=== PATIENT | female | born 1935 | race Caucasian/White ===

== ENCOUNTER 2018-10-27 02:49 | Inpatient (IN) | payer MEDICARE ==
[2018-10-27] MEDS ORDERED: Acetaminophen 1,000 MG in Premix Bag 1 BAG IVPB SCH (03:15)
[2018-10-27 03:59] LABS: CKMB 40.4 ng/mL (0-6.6)
[2018-10-27] MEDS ORDERED: Norepinephrine 8 MG/0.9% NS 250 ML ONE (04:53)
[2018-10-27] MEDS ORDERED: Enoxaparin Sodium 60 MG/0.6 ML SYRINGE ONE (05:53)
[2018-10-27] MEDS ORDERED: Aspirin Chewable 81 MG TAB ONE (05:53)
--- NOTE | 2018-10-27 06:36 | HP ---
PRIMARY CARE PHYSICIAN: Dr. Gupta. CHIEF COMPLAINT: "I fell down and I could not get up." HISTORY OF PRESENT ILLNESS: Ms. Barron is a very pleasant 82-year-old female who has a history of hypertension and hypothyroidism. She lives very close to her daughter, actually on small house of her daughter's property. She normally will come to dinner in the evenings and then go back to her home and usually is able to do her activities of daily living. Her daughter says that she came over for dinner as usual and then around 9:45 they noticed that the light was still on in her house. They went in to go check on her and found her on the ground. They were not sure how long she had been on the ground, but the patient herself said about an hour. Her daughter noticed that her entire back was wet and it looked as if she was trying to reach for remote and was not able to get it. They brought her to the emergency room for evaluation and she was found to be hypotensive and her troponin was elevated and it appears as if she has a urinary tract infection and she was sent over from the [place] [facility] to our emergency room for admission and further treatment. The daughter says other than having decrease in appetite recently, she is not sure if she had any other complaints. The patient herself is alert and oriented to person, place, and time now and admits that she fell and could not get up. She says "that she feels fine now." She denies any chest pain. She denies feeling short of breath. She denies any abdominal pain. No nausea. No vomiting. No headache. No sore throat. She only says that her legs are aching. REVIEW OF SYSTEMS: All systems were reviewed and are negative except for that mentioned in the history of present illness. PAST MEDICAL HISTORY: Significant for hypertension and hypothyroidism. PAST SURGICAL HISTORY: She has had neck surgery. ALLERGIES: NO KNOWN DRUG ALLERGIES. SOCIAL HISTORY: She is . She is a nonsmoker and nondrinker. CODE STATUS: Full code. FAMILY HISTORY: Significant for diabetes mellitus. CURRENT MEDICATIONS: Include; 1. Atorvastatin 10 mg daily. 2. Sertraline 25 mg daily. 3. Potassium chloride 10 mEq once a day. 4. Lisinopril/hydrochlorothiazide 20/25 one tablet daily. 5. Amlodipine 5 mg daily. PHYSICAL EXAMINATION: GENERAL: She is alert. She is oriented to person, place, and time as well as situation. She is well developed and well nourished. She does not appear in distress. VITAL SIGNS: Her blood pressure was approximately 99/50, heart rate 96, respiratory rate of 24, and temperature was 98. HEENT: Her pupils are equal, round, and reactive. Extraocular muscles are intact. Her sclerae anicteric. Throat; there is no erythema, no exudate. She is edentulous. NECK: There is no adenopathy, no bruits. LUNGS: She has some rales at the bases bilaterally. There is no wheezing or rhonchi. CARDIOVASCULAR: She had a normal S1 and S2. There is no S3 or S4. No murmurs, clicks, or rubs. ABDOMEN: Obese. It is soft. It is nontender and nondistended. Positive for bowel sounds. No rebound or guarding. EXTREMITIES: There is no edema. No calf tenderness. No joint effusions or warmth. NEUROLOGIC: The exam is grossly nonfocal. IMAGING STUDIES: On her chest x-ray, which is by my reading, she has widened mediastinum. It is unclear whether or not this is a rotated film and possibly some increased pulmonary vascular markings. CT scan of the brain was negative. X-ray of the pelvis is reported as being negative. LABORATORY DATA: White blood cell count 21.3, hemoglobin 13.2, hematocrit is 39.4, and platelet count is 293. Sodium is 135, potassium 3.9, chloride is 101, CO2 of 17, BUN of 32, creatinine 1.58, and glucose is 171. Lactic acid was 2.4. Troponin is 3.8. Urinalysis shows trace ketones, large leukocyte esterase, 3+ bacteria, and 11 to 20 wbc's per high-power field. ASSESSMENT: 1. This is an 82-year-old female who presents with generalized weakness and sepsis likely as a result of urinary tract infection. She also has wrq-BZ-[id number] myocardial infarction type 2 also as a result of infection. She will be admitted to the ICU since she is requiring pressor support. Continue IV antibiotics. If blood cultures have not yet been done, these will be done as well as urine cultures in the ER. We will need to follow up on the official radiology read on the CT and chest x-ray. We will consult Pulmonary Critical Care. 2. Elevated troponin. This is likely [id number] myocardial infarction type 2. We will get an echocardiogram and continue the atorvastatin and low-dose aspirin and further recommendations from Cardiology. 3. Hypertension. She is currently hypotensive. Therefore, lisinopril and amlodipine will be held. 4. She will be placed on deep venous thrombosis and gastrointestinal prophylaxis and further recommendations to follow. Job ID: [id number]
[2018-10-27] MEDS ORDERED: Norepinephrine 8 MG/250 ML BAG IVPB PRN (06:40)
[2018-10-27] MEDS ORDERED: Ondansetron ODT 4 MG TAB SL PRN ×2 (06:41→12:07)
[2018-10-27] MEDS ORDERED: Acetaminophen 325 MG TAB PO PRN ×2 (06:41→06:51)
[2018-10-27] MEDS ORDERED: Ondansetron PF 4 MG/2 ML Vial IVP PRN ×2 (06:41→12:07)
[2018-10-27] MEDS ORDERED: Sodium Chloride 0.9% 1,000 ML IV SCH (06:45)
[2018-10-27 06:48] LABS: Troponin I 7.828 ng/mL (< 0.028)
[2018-10-27] MEDS ORDERED: Norepinephrine 8 MG/0.9% NS 250 ML IVPB SCH (06:51)
[2018-10-27 07:10] VITALS: BMI 19.9
[2018-10-27 07:18] LABS: Lactic Acid 1.5 mmol/L (0.5-2.2)
[2018-10-27] MEDS: Piperacillin/Tazobactam 3.375 GM in Sodium Chloride 0.9% 100 ML IVPB SCH ×3 (08:25→20:56)
--- NOTE | 2018-10-27 08:26 | CT ---
PRELIMINARY REPORT/[facility]/EMERGENCY AFTER HOURS PROCEDURE: EXAM: CT Head Without Contrast EXAM DATE/TIME: 10/27/2018 3:29 AM CLINICAL HISTORY: 82 years old, female; Injury or trauma; Fall; Initial encounter; Abrasion; Not specified; Patient HX: Fall; PT found on floor. AMS TECHNIQUE: Axial computed tomography images of the head/brain without contrast. COMPARISON: No relevant prior studies available. FINDINGS: Brain: Age appropriate atrophy and small vessel ischemic change. No mass effect, midline shift or ext ra axial fluid collections. Jay-white matter differentiation is normal. Ventricles: Normal. No ventriculomegaly. Bones/joints: Unremarkable. No acute fracture. Sinuses: Visualized sinuses are unremarkable. No acute sinusitis. Mastoid air cells: Visualized mastoid air cells are unremarkable. No mastoid effusion. Soft tissues: Unremarkable. Vasculature: Carotid and vertebral artery atherosclerotic calcification. IMPRESSION: No acute intracranial injury. Thank you for allowing us to participate in the care of your patient. Dictated and Authenticated by: Ash Evans MD 10/27/2018 4:52 AM Central Time ([place] & [place]) FINAL REPORT HEAD CT NONCONTRAST: FINDINGS/IMPRESSION: Agree with the preliminary interpretation provided above. No acute intracranial hemorrhage or mass effect. POS: [facility]
[2018-10-27] MEDS: Sodium Chloride 0.9% 1,000 ML IV SCH ×2 (08:45→20:56)
[2018-10-27] MEDS: Aspirin 325 mg Enteric Coated Tablet PO SCH (08:45)
[2018-10-27] MEDS: Vancomycin HCl 750 MG in Sodium Chloride 0.9% 250 ML 250 ML IVPB SCH (08:45)
[2018-10-27] MEDS: Famotidine 20 MG TAB PO SCH ×2 (08:45→21:05)
[2018-10-27] MEDS: Enoxaparin Sodium 40 MG/0.4 ML SYRINGE SC SCH (08:45)
[2018-10-27] MEDS ORDERED: Vancomycin HCl 1 GM in Premix Bag 1 BAG IVPB SCH (09:00)
[2018-10-27] MEDS: Atorvastatin Calcium 10 MG TAB PO SCH (21:05)
--- NOTE | 2018-10-28 01:43 | CON ---
DATE OF CONSULTATION: HISTORY OF PRESENT ILLNESS: Elis Barron is a pleasant 82-year-old white female, admitted with weakness and has been found to have elevated cardiac enzymes. She was found by her family to be on the floor at home and was brought to the emergency room, found to be hypotensive with elevated troponin. She was initially evaluated in [facility] Emergency Room and then transferred to [place]. She denies any chest discomfort recently or at any time. She denies any shortness of breath. PAST MEDICAL HISTORY: Hypertension, hypothyroidism, and hypercholesterolemia. OPERATIONS: Neck surgery. MEDICATIONS: Doses unknown, 1. Levothyroxine. 2. Atorvastatin. 3. Amlodipine. 4. Lisinopril/hydrochlorothiazide 20/25 daily. 5. KCl. 6. Sertraline. ALLERGIES: NONE. SOCIAL HISTORY: She does not smoke or drink. FAMILY HISTORY: Negative for coronary artery disease. REVIEW OF SYSTEMS: Difficult to obtain with her being hard of hearing and not having her hearing aids. PHYSICAL EXAMINATION: VITAL SIGNS: Blood pressure 108/67. However, blood pressure earlier today was in the 70s and 80s systolic. CHEST: Clear. CARDIAC: S1 and S2 normal without any S3, S4, or murmurs. ABDOMEN: Normal bowel sounds without tenderness. EXTREMITIES: Revealed no clubbing, cyanosis, or edema. NEUROLOGICAL: Grossly intact. SKIN: Warm and dry. LABORATORY DATA: EKG revealed sinus tachycardia with premature atrial complexes, premature ventricular complexes. Subsequent EKG this morning shows downsloping ST segments in lead II and V3 through V6, new from her admission EKG. Echocardiogram revealed study be technically difficult. There was moderate left ventricular dysfunction with ejection fraction of 30% to 35% with apical dyskinesis, mild left atrial enlargement, mitral annular calcification, aortic valvular sclerosis, mild mitral regurgitation, and dgzy-cn-ldyotjnk tricuspid regurgitation. White count 21,300, hemoglobin 13.2, hematocrit 39.4. Troponin I is up to 12.780, CK-MB 40.4, total CK 559. Sodium 135, potassium 3.9, chloride 101, carbon dioxide 17, BUN 32, creatinine 1.53. BNP 307.8. Urinalysis revealed large leukocyte esterase, 11 to 20 wbc's, 0 to 3 rbc's, and 3+ bacteria. IMPRESSION: 1. Xab-MX-iglkfisnq myocardial infarction, although the patient denies any chest discomfort. 2. Probable urosepsis with hypotension, elevated white count, and what looks like an infected urine. 3. History of hypertension. 4. Hypothyroidism. 5. Hyperlipidemia. 6. Acute kidney injury. PLAN: TSH and lipid profile will be obtained. Consideration should be given to cardiac catheterization once she is more hemodynamically stable and with further discussion with the family. I imagine this will take several days for to improve from her hypotension. Once her blood pressure can tolerate, topical nitrates should be added and possibly beta daina. With her left ventricular dysfunction, carvedilol would be the best option. Cultures thus far have been negative. Job ID: [id number]
[2018-10-28] MEDS: Piperacillin/Tazobactam 3.375 GM in Sodium Chloride 0.9% 100 ML IVPB SCH ×4 (03:09→21:50)
[2018-10-28 04:32] LABS: #Lymphocytes 0.4 thou/uL (1.20-3.40); #Monocytes 0.1 thou/uL (0.11-0.59); #Neutrophils 6.4 thou/uL (1.40-6.50); %Basophils 0.2 % (0.0-1.0); %Lymphocytes 5.9 % (21.0-51.0); %Monocytes 1.9 % (0.0-10.0); Hemoglobin 10.8 g/dL (12.0-16.0); Mean Corpuscular HGB CONC 33.3 g/dL (32.0-36.0); Mean Corpuscular Hemoglobin 32.3 pg (27.0-31.0); Mean Corpuscular Volume 96.9 fL (78.0-98.0); Mean Platelet Volume 8.7 fL (7.4-10.4); Platelet Count 242 thou/uL (130-400); RBC Distribution Width 11.6 % (11.5-14.5); Red Blood Cell (RBC) Count 3.33 mill/uL (4.20-5.40)
[2018-10-28 04:53] LABS: Anion Gap 12 mmol/L (10-20); BUN (Urea Nitrogen) 28 mg/dL (9.8-20.1); Calc. Creatinine Clearance 28 mL/min (70-130); Calcium 7.8 mg/dL (7.8-10.44); Carbon Dioxide 19 mmol/L (23-31); Cardiac Risk 1.9 (Less than 4.5); Chloride 109 mmol/L (98-107); Cholesterol 102 mg/dl (< 200 Desired); Estimated GFR-MDRD 41; Glucose 148 mg/dL (83-110); HDL Cholesterol 53 mg/dL (>60 Neg Risk); LDL Cholesterol, Calculated 35 mg/dL; Sodium 137 mmol/L (136-145); Triglycerides 70 mg/dL (Less than 150)
[2018-10-28] MEDS ORDERED: Potassium Chloride 20 MEQ TAB PO SCH (06:30)
[2018-10-28] MEDS: Enoxaparin Sodium 40 MG/0.4 ML SYRINGE SC SCH (08:54)
[2018-10-28] MEDS: Famotidine 20 MG TAB PO SCH ×2 (08:54→21:49)
[2018-10-28] MEDS: Aspirin 325 mg Enteric Coated Tablet PO SCH (08:54)
[2018-10-28] MEDS: Vancomycin HCl 750 MG in Sodium Chloride 0.9% 250 ML 250 ML IVPB SCH (09:49)
[2018-10-28] MEDS: Sodium Chloride 0.9% 1,000 ML IV SCH (09:50)
[2018-10-28] MEDS ORDERED: Loperamide HCl 2 MG CAP PO SCH (10:30)
[2018-10-28] MEDS: Loperamide HCl 2 MG CAP PO PRN ×2 (12:17→16:12)
--- NOTE | 2018-10-28 14:44 | PDOC.PN ---
- Subjective Encounter Start Date: 10/28/18 Encounter Start Time: 12:30 Subjective: awake, mild sob -: daughter at bedside -: had multiple episodes of watery diarrhea from am - Objective Resuscitation Status - Order Detail: 10/27/18 06:06 Resuscitation Status Routine Resuscitation Status: FULL: Full Resuscitation MAR Reviewed: Yes Vital Signs & Weight: Vital Signs (12 hours) Temp Pulse Ox 10/28/18 12:00 98.5 F 10/28/18 08:00 98.6 F 10/28/18 07:54 100 10/28/18 07:00 98.6 F 10/28/18 04:00 98.3 F Weight Weight 112 lb 10.499 oz Most Recent Monitor Data Heart Rate from ECG 103 NIBP 105/64 NIBP BP-Mean 77 Respiration from ECG 27 SpO2 95 I&O: 10/27/18 10/28/18 10/29/18 06:59 06:59 06:59 Intake Total 3183 890 Output Total 945 765 Balance 2238 125 Result Diagrams: 10/28/18 04:10 10/28/18 04:10 Phys Exam - Physical Examination HEENT: PERRLA, sclera anicteric Neck: no JVD, supple Respiratory: no wheezing, no rales rhonchi+ Cardiovascular: RRR, no significant murmur Gastrointestinal: soft, non-tender, positive bowel sounds Musculoskeletal: no edema, pulses present Neurological: non-focal, moves all 4 limbs Dx/Plan (1) Gastroenteritis Code(s): K52.9 - NONINFECTIVE GASTROENTERITIS AND COLITIS, UNSPECIFIED Status : Acute (2) UTI (urinary tract infection) Status: Acute Qualifiers: Urinary tract infection type: acute cystitis Hematuria presence: without hematuria Qualified Code(s): N30.00 - Acute cystitis without hematuria (3) Sepsis Code(s): A41.9 - SEPSIS, UNSPECIFIED ORGANISM Status: Suspected Qualifiers: Sepsis type: sepsis due to unspecified organism Qualified Code(s): A41.9 - Sepsis, unspecified organism (4) JOSE (acute kidney injury) Code(s): N17.9 - ACUTE KIDNEY FAILURE, UNSPECIFIED Status: Acute (5) NSTEMI (non-ST elevated myocardial infarction) Code(s): I21.4 - NON-ST ELEVATION (NSTEMI) MYOCARDIAL INFARCTION Status: Acute (6) Hypothyroidism Code(s): E03.9 - HYPOTHYROIDISM, UNSPECIFIED Status: Chronic Qualifiers: Hypothyroidism type: unspecified Qualified Code(s): E03.9 - Hypothyroidism , unspecified (7) Dyslipidemia Code(s): E78.5 - HYPERLIPIDEMIA, UNSPECIFIED Status: Chronic - Plan blood cs x2 prelim -ve, stool cdif -ve -: gentle iv hydration, watch for overload with ef of 30% -: on asp, lipitor, levophed press support -: vanc and zosyn -: prognosis guarded * . Review of Systems - Medications/Allergies Allergies/Adverse Reactions: Allergies Allergy/AdvReac Type Severity Reaction Status Date / Time No Known Allergies Allergy Unverified 10/27/18 03:08 Medications: Current Medications Acetaminophen (Tylenol) 650 mg PO Q4H PRN PRN Reason: Headache/Fever/Mild Pain (1-3) Last Admin: 10/27/18 16:22 Dose: 650 mg Aspirin (Ecotrin) 81 mg PO DAILY [facility] Atorvastatin Calcium (Lipitor) 10 mg PO HS [facility] Last Admin: 10/27/18 21:05 Dose: 10 mg Enoxaparin Sodium (Lovenox) 40 mg SC 0900 [facility] Last Admin: 10/28/18 08:54 Dose: 40 mg Famotidine (Pepcid) 20 mg PO BID [facility] Last Admin: 10/28/18 08:54 Dose: 20 mg Sodium Chloride (Normal Saline 0.9%) 1,000 mls @ 75 mls/hr IV .[id number] [facility] Last Admin: 10/28/18 09:50 Dose: 1,000 mls Piperacillin Sod/Tazobactam (Sod 3.375 gm/ Sodium Chloride) 100 mls @ 200 mls/ hr IVPB Q6H [facility] Last Admin: 10/28/18 08:53 Dose: 100 mls Norepinephrine Bitartrate (Levophed) 250 mls @ 0 mls/hr IVPB INF [facility]; Protocol Last Admin: 10/28/18 03:09 Dose: 250 mls Vancomycin HCl 750 mg/ Sodium (Chloride) 250 mls @ 250 mls/hr IVPB 0900 [facility] Last Admin: 10/28/18 09:49 Dose: 250 mls Loperamide HCl (Imodium) 2 mg PO Q3H PRN PRN Reason: Diarrhea/Loose Stools Last Admin: 10/28/18 12:17 Dose: 2 mg Miscellaneous Medication (Pharmacy To Dose) 0 each IVPB ASDIR PRN PRN Reason: Pharmacy to Dose VANCOMYCIN Ondansetron HCl (Zofran Odt) 4 mg SL Q6H PRN PRN Reason: Nausea/Vomiting Ondansetron HCl (Zofran) 4 mg IVP Q6H PRN PRN Reason: Nausea/Vomiting Last Admin: 10/27/18 12:37 Dose: 4 mg
--- NOTE | 2018-10-28 16:18 | EKG ---
Test Reason : Blood Pressure : / mmHG Vent. Rate : 100 BPM Atrial Rate : 100 BPM P-R Int : 182 ms QRS Dur : 076 ms QT Int : 382 ms P-R-T Axes : 059 012 -88 degrees QTc Int : 492 ms Normal sinus rhythm with PAC's Low voltage QRS T wave abnormality, consider anterolateral ischemia Prolonged QT Abnormal ECG When compared with ECG of 27-OCT-2018 02:59, (Unconfirmed) No significant change was found Confirmed by DR. Codey MENON ([id number]) on 10/28/2018 4:17:54 PM Referred By: ELSA Confirmed By:DR. Codey MENON
[2018-10-28] MEDS ORDERED: Furosemide 40 MG/4 ML VIAL SLOW IVP SCH (19:15)
[2018-10-28] MEDS ORDERED: Morphine 2 MG/ML SYRINGE SLOW IVP SCH (19:15)
[2018-10-28] MEDS ORDERED: Morphine 4 MG/ML VIAL ONE (20:40)
[2018-10-28] MEDS ORDERED: Scopolamine 1.5 mg/72 hour Patch TD SCH (21:00)
[2018-10-28] MEDS: Atorvastatin Calcium 10 MG TAB PO SCH (21:49)
[2018-10-28] MEDS: Morphine 2 MG/ML SYRINGE SLOW IVP PRN (22:53)
[2018-10-29] MEDS: Sodium Chloride 0.9% 1,000 ML IV SCH (00:21)
[2018-10-29] MEDS: Morphine 2 MG/ML SYRINGE SLOW IVP PRN ×6 (02:40→19:16)
[2018-10-29] MEDS: Enoxaparin Sodium 40 MG/0.4 ML SYRINGE SC SCH (08:41)
[2018-10-29] MEDS ORDERED: Aspirin 81 mg Enteric Coated Tablet PO SCH ×2 (09:00→18:00)
[2018-10-29 11:28] VITALS: TEMP 98
--- NOTE | 2018-10-29 15:25 | PDOC.PN ---
- Subjective Encounter Start Date: 10/29/18 Encounter Start Time: 07:00 Subjective: awake, responds to verbal questions -: sob+ - Objective Resuscitation Status - Order Detail: 10/28/18 19:58 Resuscitation Status Routine Resuscitation Status: DNAR: NO Resuscitation Discussed with: d/w and siblings at bedside MAR Reviewed: Yes Vital Signs & Weight: Vital Signs (12 hours) Temp Pulse Resp BP BP Pulse Ox 10/29/18 11:27 98.0 F 94 25 H 85/58 L 96 10/29/18 09:00 90 L 10/29/18 08:00 99.5 F 102 H 25 H 79/53 L 90 L 10/29/18 06:02 102 H 30 H 94/61 90 L Weight Weight 112 lb 10.499 oz Most Recent Monitor Data Heart Rate from ECG 143 NIBP 73/50 NIBP BP-Mean 57 Respiration from ECG 38 SpO2 77 I&O: 10/28/18 10/29/18 10/30/18 06:59 06:59 06:59 Intake Total 3183 1861 Output Total 945 1566 Balance 2238 295 Result Diagrams: 10/28/18 04:10 10/28/18 04:10 Phys Exam - Physical Examination HEENT: PERRLA, moist MMs Neck: no JVD, supple rales+ Cardiovascular: RRR, no significant murmur Gastrointestinal: soft, non-tender, positive bowel sounds Musculoskeletal: no edema, pulses present Neurological: non-focal, moves all 4 limbs Dx/Plan (1) Gastroenteritis Code(s): K52.9 - NONINFECTIVE GASTROENTERITIS AND COLITIS, UNSPECIFIED Status : Acute (2) UTI (urinary tract infection) Status: Acute Qualifiers: Urinary tract infection type: acute cystitis Hematuria presence: without hematuria Qualified Code(s): N30.00 - Acute cystitis without hematuria (3) Sepsis Code(s): A41.9 - SEPSIS, UNSPECIFIED ORGANISM Status: Acute Qualifiers: Sepsis type: sepsis due to unspecified organism Qualified Code(s): A41.9 - Sepsis, unspecified organism (4) JOSE (acute kidney injury) Code(s): N17.9 - ACUTE KIDNEY FAILURE, UNSPECIFIED Status: Acute (5) NSTEMI (non-ST elevated myocardial infarction) Code(s): I21.4 - NON-ST ELEVATION (NSTEMI) MYOCARDIAL INFARCTION Status: Acute (6) Hypothyroidism Code(s): E03.9 - HYPOTHYROIDISM, UNSPECIFIED Status: Chronic Qualifiers: Hypothyroidism type: unspecified Qualified Code(s): E03.9 - Hypothyroidism , unspecified (7) Dyslipidemia Code(s): E78.5 - HYPERLIPIDEMIA, UNSPECIFIED Status: Chronic (8) Cardiomyopathy Code(s): I42.9 - CARDIOMYOPATHY, UNSPECIFIED Status: Acute Qualifiers: Cardiomyopathy type: ischemic Qualified Code(s): I25.5 - Ischemic cardiomyopathy Comment: ef of 30% (9) Acute respiratory failure with hypoxia Code(s): J96.01 - ACUTE RESPIRATORY FAILURE WITH HYPOXIA Status: Acute - Plan sbp around 80's, has pulm vasc congestion and resp distress -: d/w daughter and patient at bedside, they confirm hospice and comfort care -: d/w manager rn case for inpt hospice -: prognosis guarded -: family did not want intubation or any active treatments per pt's wishes * . Review of Systems - Medications/Allergies Allergies/Adverse Reactions: Allergies Allergy/AdvReac Type Severity Reaction Status Date / Time No Known Allergies Allergy Unverified 10/27/18 03:08 Medications: Current Medications Albuterol/Ipratropium (Duoneb) 3 ml NEB [id number] PRN PRN Reason: SOB &/or Wheezing Enoxaparin Sodium (Lovenox) 40 mg SC 0900 [facility] Last Admin: 10/29/18 08:41 Dose: Not Given Morphine Sulfate (Morphine) 2 mg SLOW IVP Q2H PRN PRN Reason: dyscomfort Last Admin: 10/29/18 12:35 Dose: 2 mg Ondansetron HCl (Zofran) 4 mg IVP Q6H PRN PRN Reason: Nausea/Vomiting Last Admin: 10/27/18 12:37 Dose: 4 mg Scopolamine (Transderm Scop) 1.5 mg TD Q3D [facility] Last Admin: 10/28/18 20:53 Dose: 1.5 mg
[2018-10-29 16:58] VITALS: BP 103/63
[2018-10-29] MEDS ORDERED: Carvedilol 3.125 MG TAB PO SCH (17:00)
--- NOTE | 2018-10-29 17:06 | EKG ---
Test Reason : NSTEMI Blood Pressure : / mmHG Vent. Rate : 110 BPM Atrial Rate : 110 BPM P-R Int : 164 ms QRS Dur : 064 ms QT Int : 338 ms P-R-T Axes : 078 022 148 degrees QTc Int : 457 ms Sinus tachycardia Anterior ST depression, new from previous EKG this date Confirmed by MEG OREILLY ([id number]), editorial manager CHARLES WAYNE ([id number]) on 10/29/2018 5:06:22 PM Referred By: AFIA Confirmed By:MEG OREILLY
[2018-10-29] MEDS ORDERED: Atorvastatin Calcium 20 MG TAB PO SCH (21:00)
[2018-10-30] MEDS ORDERED: Aspirin 81 mg Enteric Coated Tablet PO SCH (09:00)
--- NOTE | 2018-10-30 18:00 | DIS ---
DATE OF ADMISSION: 10/27/2018 DATE OF DISCHARGE: 10/29/2018 SUMMARY DATE OF : 10/29/2018, at 2009. PRIMARY CAUSES OF : Acute respiratory failure with hypoxia, 3 days; congestive heart failure exacerbation with systolic dysfunction and ejection fraction of around 30%, 3 days; and sepsis, 3 days; [id number] myocardial infarction, 3 days. SECONDARY CAUSES OF : Urinary tract infection and acute kidney injury. BRIEF COURSE DURING HOSPITALIZATION: The patient initially got admitted after she fell and could not get up. She was found to be in septic shock and had to be placed on pressors along with sepsis protocol in ICU. Ms. Barron also had amk-CA-shvcpuvil NM with troponin trending up to 12.7. She has had campbell-cultures drawn. Blood cultures x2 did not reveal any growth. During the course of her stay, the patient went into acute respiratory failure with hypoxia secondary to CHF exacerbation with systolic dysfunction and ejection fraction of around 30%. The patient and family did not want any aggressive measures including resuscitation and ventilator. The patient's systolic blood pressure was trending down to 70s, and she was hypoxic as well needing intubation, but due to the patient's preference for comfort care, she was discontinued on all pressors and active measures. She was transferred to medical floor for comfort care only. The patient survived the last 24 hours, but she further deteriorated and was pronounced at 2009 on 10/29/2018. Her daughter was at her bedside. The efforts were on to place her under compassionate care hospice at home prior to this, but didn't materialize prior to her expiration. The plan was to go home with hospice on the , when all the equipment would have been arranged at home. The body will be released to family per hospital protocol. Job ID: [id number] MTDD
== END 2018-10-29 20:10 | disposition expired | DRG 871 ==
LOC: ERS 02:49 → CCU 04:45 → T4-A 10-28 21:38
PROVIDERS: ADMIT Internal Medicine; ATTEND Internal Medicine
PROC: 05HM33Z Insertion of Infusion Device into Right Internal Jugular Vein, Percutaneous Approach (ICD-10-PCS; principal; 2018-10-27)
PROC: 3E033XZ Introduction of Vasopressor into Peripheral Vein, Percutaneous Approach (ICD-10-PCS; 2018-10-27)
DX: A41.9 Sepsis, unspecified organism (principal); I50.23 Acute on chronic systolic (congestive) heart failure; J96.01 Acute respiratory failure with hypoxia; R65.21 Severe sepsis with septic shock; I21.4 Non-ST elevation (NSTEMI) myocardial infarction; N17.9 Acute kidney failure, unspecified; N30.00 Acute cystitis without hematuria; Z66 Do not resuscitate; Z51.5 Encounter for palliative care; I25.5 Ischemic cardiomyopathy; I11.0 Hypertensive heart disease with heart failure; E03.9 Hypothyroidism, unspecified; E78.5 Hyperlipidemia, unspecified; K52.9 Noninfective gastroenteritis and colitis, unspecified; Z79.899 Other long term (current) drug therapy; W18.30XA Fall on same level, unspecified, initial encounter
CPT/HCPCS: 36415; 36556; 70450; 80048; 80061; 82553; 83605; 83880; 84443; 84484; 85025; 87040; 87324; 87449; 93005; 93010; 93306; 96365; 96372; J0131; J1650; J1940; J2270; J2405; J2543; J3370; J7050